=== PATIENT | male | born 1995 | race Caucasian/White ===

== ENCOUNTER 2017-08-14 14:03 | Emergency (ER) | payer OTHER ==
[~2017-08-14] VITALS: Ht 170.2 cm; Wt 67.1 kg
[2017-08-14] MEDS ORDERED: CONCERTA54 MG (14:09)
== END 2017-08-14 17:59 | disposition home or self-care (01) ==
LOC: ER 14:03
DX: J09.X2 Influenza due to identified novel influenza A virus with other respiratory manifestations (principal); J45.998 Other asthma; B34.9 Viral infection, unspecified